=== PATIENT | male | born 1945 | race Caucasian/White ===

== ENCOUNTER 2023-11-14 21:10 | Inpatient (IN) | payer OTHER ==
[~2023-11-14 21:10] MED LIST: Iopamidol 300 61% 100 ML VIAL FS ONE
[2023-11-14 22:13] LABS: Hematocrit 31.8 % (38.8-50.0); Hemoglobin 10.3 g/dL (13.5-17.5); Mean Corpuscular HGB CONC 32.4 g/dL (32.0-36.0); Mean Corpuscular Volume 92.7 fl (81.2-95.1); Mean Platelet Volume 11.4 fl (7.4-10.4); Platelet Count 313 10x3/uL (150-450); RBC Distribution Width 19.8 % (11.5-14.5); Red Blood Cell (RBC) Count 3.43 10x6/uL (4.32-5.72); White Blood Cell (WBC) Count 14.9 10x3/uL (3.5-10.5)
[2023-11-14 22:24] LABS: ALT (SGPT) 11 U/L (8-55); AST (SGOT) 16 U/L (5-34); Albumin 3.6 g/dL (3.4-4.8); Alkaline Phosphatase 72 U/L (40-110); Anion Gap 10 mmol/L (10-20); BUN (Urea Nitrogen) 20 mg/dL (8.4-25.7); Bilirubin, Total 0.2 mg/dL (0.2-1.2); Calc. Creatinine Clearance 0 mL/min (70-130); Calcium 8.5 mg/dL (7.8-10.44); Carbon Dioxide 24 mmol/L (23-31); Chloride 107 mmol/L (98-107); Estimated GFR 74; Glucose 114 mg/dL (83-110); Lipase 379 U/L (8-78); Magnesium 1.9 mg/dL (1.6-2.6); Potassium 4.4 mmol/L (3.5-5.1); Protein, Total 7.6 g/dL (5.8-8.1); Sodium 137 mmol/L (136-145)
[2023-11-14 22:31] LABS: Troponin I Less than 0.010 ng/mL (< 0.028)
[2023-11-14 22:35] LABS: Band 10 % (5-11); Lymphocytes 9 % (21-51); Monocytes 12 % (0-10)
[2023-11-14 22:36] LABS: Neutrophil 69 % (42-75); Target Cells SLIGHT = 2-5 cells (100X) (0-1/hpf)
[2023-11-14 22:37] LABS: Ovalocytes SLIGHT = 2-5 cells (100X) (0-1/hpf)
[2023-11-14 22:38] LABS: Microcytosis SLIGHT = 6-15 cells (100X) (0-5/hpf)
[2023-11-14 22:39] LABS: Giant Platelets SLIGHT HPF (0-5); Large Platelets MODERATE (None Seen); Platelet Adequacy Comment Appears Adequate
[2023-11-14 22:40] LABS: MDiff Complete? YES
[2023-11-14 22:46] LABS: SARS-CoV-2 NAA Rapid Test Not Detected (NotDetected)
[2023-11-14 22:50] LABS: Bilirubin Neg (Negative); Blood, Urine 250 (Negative); Clarity Cloudy (Clear); Glucose, Urine (Dipstick) Normal (Negative); Ketone, Urine Negative (Negative); Leukocyte 500 (Negative); Nitrite Negative (Negative); Protein, Urine (Dipstick) 100 mg/dl (Neg-Trace); Urobilinogen Normal mg/dL (Less than 2)
[2023-11-14 22:58] LABS: Bacteria/HPF 4+ HPF (None Seen); CAUTI Indications for Culture Alt mental st,lethar; Squamous Epithelial 0-3 HPF (0-3); Urine Culture Reflex Yes Yes; WBC/HPF Greater Than 50 HPF (0-3)
[2023-11-15] MEDS ORDERED: cefTRIAXone (ROCEPHIN) 2 GM VIAL ONE (00:06)
[2023-11-15] MEDS ORDERED: Calcium Carbonate 500 MG ChewTAB PO PRN (01:23)
[2023-11-15] MEDS ORDERED: Senokot S 8.6-50 MG TAB PO PRN (01:23)
[2023-11-15] MEDS ORDERED: HYDROcodone/Acetaminophen 5/325 mg Tablet PO PRN (01:23)
[2023-11-15] MEDS ORDERED: Acetaminophen 325 MG TAB PO PRN (01:23)
[2023-11-15] MEDS ORDERED: Ipratropium/Albuterol 3 ML NEB NEB PRN (01:35)
[2023-11-15 04:08] LABS: Hematocrit 33.6 % (38.8-50.0); Hemoglobin 11.2 g/dL (13.5-17.5); Mean Corpuscular HGB CONC 33.3 g/dL (32.0-36.0); Mean Corpuscular Hemoglobin 30.4 pg (27.0-33.0); Mean Corpuscular Volume 91.3 fl (81.2-95.1); Mean Platelet Volume 11.4 fl (7.4-10.4); Platelet Count 301 10x3/uL (150-450); RBC Distribution Width 19.8 % (11.5-14.5); Red Blood Cell (RBC) Count 3.68 10x6/uL (4.32-5.72); White Blood Cell (WBC) Count 11.1 10x3/uL (3.5-10.5)
[2023-11-15 04:17] LABS: MDiff Complete? YES
[2023-11-15 04:21] LABS: ALT (SGPT) 11 U/L (8-55); AST (SGOT) 15 U/L (5-34); Albumin 3.6 g/dL (3.4-4.8); Alkaline Phosphatase 74 U/L (40-110); Anion Gap 13 mmol/L (10-20); BUN (Urea Nitrogen) 17 mg/dL (8.4-25.7); Bilirubin, Direct 0.1 mg/dL (0.1-0.3); Bilirubin, Total 0.2 mg/dL (0.2-1.2); Calc. Creatinine Clearance 0 mL/min (70-130); Calcium 8.4 mg/dL (7.8-10.44); Carbon Dioxide 22 mmol/L (23-31); Chloride 108 mmol/L (98-107); Estimated GFR 89; Glucose 119 mg/dL (83-110); Lipase 285 U/L (8-78); Protein, Total 7.7 g/dL (5.8-8.1); Sodium 139 mmol/L (136-145)
[2023-11-15 06:51] LABS: Band 2 % (5-11); Eosinophils 2 % (0-10); Lymphocytes 10 % (21-51); Metamyelocyte 1 % (0-0); Monocytes 5 % (0-10); Neutrophil 80 % (42-75)
[2023-11-15 06:52] LABS: Platelet Adequacy Comment Appears Adequate; RBC Morph Comment Within Normal Limits
[2023-11-15] MEDS ORDERED: Ondansetron PF 4 MG/2 ML Vial ONE (08:16)
[2023-11-15] MEDS: Mometasone/Formoterol 200/5 60 PUFF INH SCH ×2 (08:22→19:29)
[2023-11-15] MEDS: Lactated Ringer's 1,000 ML IV SCH ×2 (08:23→18:19)
[2023-11-15] MEDS: Ondansetron PF 4 MG/2 ML Vial IVP PRN ×2 (08:24→17:45)
[2023-11-15] MEDS ORDERED: Famotidine/PF 20 mg/2ml Vial SLOW IVP SCH (09:00)
[2023-11-15] MEDS ORDERED: Amlodipine 5 MG TAB ONE (09:07)
[2023-11-15] MEDS ORDERED: Enoxaparin 40 MG (0.4 mL) SYRINGE ONE (09:07)
[2023-11-15] MEDS ORDERED: Pantoprazole 40 MG VIAL ONE (09:08)
[2023-11-15] MEDS ORDERED: Dicyclomine 20 MG TAB ONE (09:10)
[2023-11-15] MEDS: Amlodipine 10 MG TAB PO SCH (10:38)
[2023-11-15] MEDS: Enoxaparin 40 MG (0.4 mL) SYRINGE SC SCH (10:39)
[2023-11-15] MEDS: Dicyclomine 10 MG CAP PO SCH ×3 (10:39→21:35)
[2023-11-15] MEDS: Polyethylene Glycol 3350 17 GM Packet PO SCH (10:39)
[2023-11-15] MEDS: Pantoprazole 40 MG VIAL IVP SCH ×2 (10:39→21:35)
[2023-11-15] MEDS: Lisinopril 20 MG TAB PO SCH (10:39)
[2023-11-15] MEDS: Tamsulosin HCl 0.4 MG CAP PO SCH (21:35)
[2023-11-15] MEDS: Atorvastatin Calcium 20 MG TAB PO SCH (21:35)
[2023-11-15 23:30] VITALS: BMI 20.5
[2023-11-15] MEDS: cefTRIAXone\\ROCEPHIN 1 GM in Sodium Chloride 0.9% 100 ML IVPB SCH (23:52)
[2023-11-16 04:42] LABS: Hematocrit 29.4 % (38.8-50.0); Hemoglobin 9.7 g/dL (13.5-17.5); Mean Corpuscular Hemoglobin 29.7 pg (27.0-33.0); Mean Corpuscular Volume 89.9 fl (81.2-95.1); Mean Platelet Volume 11.4 fl (7.4-10.4); Platelet Count 294 10x3/uL (150-450); RBC Distribution Width 19.9 % (11.5-14.5); Red Blood Cell (RBC) Count 3.27 10x6/uL (4.32-5.72); White Blood Cell (WBC) Count 9.2 10x3/uL (3.5-10.5)
[2023-11-16 04:59] LABS: ALT (SGPT) 9 U/L (8-55); AST (SGOT) 14 U/L (5-34); Albumin 3.1 g/dL (3.4-4.8); Alkaline Phosphatase 58 U/L (40-110); Anion Gap 11 mmol/L (10-20); BUN (Urea Nitrogen) 20 mg/dL (8.4-25.7); Bilirubin, Total 0.2 mg/dL (0.2-1.2); Calc. Creatinine Clearance 46 mL/min (70-130); Calcium 8.1 mg/dL (7.8-10.44); Carbon Dioxide 26 mmol/L (23-31); Chloride 110 mmol/L (98-107); Estimated GFR 62; Globulin 3.3 g/dL (2.4-3.5); Glucose 82 mg/dL (83-110); Lipase 31 U/L (8-78); Magnesium 2.1 mg/dL (1.6-2.6); Phosphorus 3.9 mg/dL (2.3-4.7); Potassium 3.8 mmol/L (3.5-5.1); Protein, Total 6.4 g/dL (5.8-8.1); Sodium 143 mmol/L (136-145)
[2023-11-16] MEDS: Lactated Ringer's 1,000 ML IV SCH (05:11)
[2023-11-16 05:19] LABS: MDiff Complete? YES
[2023-11-16 05:45] LABS: Band 6 % (5-11); CRP (Inflammatory) 1.98 mg/dL (= or < 0.5); Eosinophils 2 % (0-10); Lymphocytes 26 % (21-51); Monocytes 9 % (0-10); Neutrophil 55 % (42-75); Reactive Lymphocytes 2 % (0-10)
[2023-11-16 05:49] LABS: Large Platelets SLIGHT (None Seen); Target Cells SLIGHT = 2-5 cells (100X) (0-1/hpf)
[2023-11-16 05:50] LABS: Platelet Adequacy Comment Appears Adequate
[2023-11-16] MEDS: Mometasone/Formoterol 200/5 60 PUFF INH SCH ×2 (07:16→20:30)
[2023-11-16] MEDS: Enoxaparin 40 MG (0.4 mL) SYRINGE SC SCH (09:11)
[2023-11-16] MEDS: Pantoprazole 40 MG VIAL IVP SCH ×2 (09:11→20:31)
[2023-11-16] MEDS: Amlodipine 10 MG TAB PO SCH (09:12)
[2023-11-16] MEDS: Lisinopril 20 MG TAB PO SCH (09:12)
[2023-11-16] MEDS: Polyethylene Glycol 3350 17 GM Packet PO SCH (09:13)
[2023-11-16] MEDS ORDERED: diphenhydrAMINE 25 MG CAP PO PRN (17:24)
[2023-11-16] MEDS: Tamsulosin HCl 0.4 MG CAP PO SCH (20:31)
[2023-11-16] MEDS: Atorvastatin Calcium 20 MG TAB PO SCH (20:31)
[2023-11-16] MEDS: cefTRIAXone\\ROCEPHIN 1 GM in Sodium Chloride 0.9% 100 ML IVPB SCH (23:48)
[2023-11-17] MEDS: Mometasone/Formoterol 200/5 60 PUFF INH SCH ×2 (07:25→19:10)
[2023-11-17 08:52] VITALS: TEMP 97.6
[2023-11-17] MEDS: Amlodipine 10 MG TAB PO SCH (09:21)
[2023-11-17] MEDS: Lisinopril 20 MG TAB PO SCH (09:21)
[2023-11-17 09:22] VITALS: BP 156/71
[2023-11-17] MEDS: Polyethylene Glycol 3350 17 GM Packet PO SCH (09:22)
[2023-11-17] MEDS: Enoxaparin 40 MG (0.4 mL) SYRINGE SC SCH (09:22)
[2023-11-17] MEDS: Pantoprazole 40 MG VIAL IVP SCH (09:22)
== END 2023-11-17 23:30 | DRG 690 ==
LOC: CSHERS 21:10 → EEVIPCON 11-15 01:23 → CSHERHOLD 11-15 01:23 → CSHTELE 11-15 14:59
PROVIDERS: ADMIT Student in an Organized Health Care Education/Training Program; ATTEND Internal Medicine
DX: N10 Acute pyelonephritis (principal); I10 Essential (primary) hypertension; E78.5 Hyperlipidemia, unspecified; J44.9 Chronic obstructive pulmonary disease, unspecified; K21.9 Gastro-esophageal reflux disease without esophagitis; F17.210 Nicotine dependence, cigarettes, uncomplicated; R11.2 Nausea with vomiting, unspecified; R47.1 Dysarthria and anarthria; N40.0 Benign prostatic hyperplasia without lower urinary tract symptoms; Z11.52 Encounter for screening for COVID-19
CPT/HCPCS: 36415; 70450; 70551; 71045; 72125; 74177; 80048; 80053; 80076; 81001; 83605; 83690; 83735; 84100; 84145; 84484; 85025; 86140; 87040; 87077; 87086; 87186; 93005; 94664; 96374; C9113; J0696; J1650; J2405; J3490; J7120; Q9967

== ENCOUNTER 2024-11-15 14:22 | Emergency (ER) | payer OTHER ==
[2024-11-15] MEDS ORDERED: Haloperidol Lactate 5 MG/ML VIAL ONE (14:48)
[2024-11-15 14:54] LABS: #Basophils 0.05 10x3/uL (0.0-0.2); #Eosinophils Less than 0.03 10x3/uL (0.0-0.5); #Monocytes 1.09 10x3/uL (0.0-1.1); #Neutrophils 8.27 10x3/uL (1.5-8.4); %Basophils 0.5 % (0.0-2.0); %Lymphocytes 13.9 % (18.0-47.0); %Monocytes 9.9 % (0.0-10.0); %Neutrophils 75.2 % (40.0-75.0); Hemoglobin 8.6 g/dL (13.5-17.5); Mean Corpuscular HGB CONC 31.9 g/dL (32.0-36.0); Mean Corpuscular Hemoglobin 29.2 pg (27.0-33.0); Mean Corpuscular Volume 91.5 fL (81.2-95.1); Mean Platelet Volume 10.2 fL (7.4-10.4); Platelet Count 386 10x3/uL (150-450); RBC Distribution Width 16.3 % (11.5-14.5); Red Blood Cell (RBC) Count 2.95 10x6/uL (4.32-5.72)
[2024-11-15 15:13] LABS: PTT 32.7 sec (22.0-33.0)
[2024-11-15 15:15] LABS: ALT (SGPT) 8 U/L (Less than 45); AST (SGOT) 17 U/L (11-34); Acetaminophen Less than 10 mcg/mL (Less than 10); Albumin 2.5 g/dL (3.1-4.5); Alcohol Less than 10.0 mg/dL (Less than 10); Alkaline Phosphatase 61 U/L (40-110); Anion Gap 14 mmol/L (10-20); BUN (Urea Nitrogen) 33 mg/dL (8.4-25.7); Bilirubin, Total 0.2 mg/dL (0.3-1.2); Calc. Creatinine Clearance 0 mL/min (70-130); Calcium 7.8 mg/dL (7.8-10.44); Carbon Dioxide 19 mmol/L (23-31); Chloride 105 mmol/L (98-107); Estimated GFR 33; Globulin 5.3 g/dL (2.4-3.5); Glucose 104 mg/dL (83-110); Potassium 4.6 mmol/L (3.5-5.1); Protein, Total 7.8 g/dL (5.8-8.1); Salicylate Less than 8.0 mg/dL (Less than 8.0); Sodium 133 mmol/L (136-145)
[2024-11-15 15:56] LABS: Bilirubin Neg (Negative); Blood, Urine 150 (Negative); Glucose, Urine (Dipstick) Normal (Negative); Ketone, Urine 5 mg/dL (Negative); Leukocyte 500 (Negative); Nitrite Negative (Negative); Protein, Urine (Dipstick) 100 mg/dl (Neg-Trace); Urobilinogen Normal mg/dL (Less than 2); pH, Urine 6.5 (5.0-9.0)
[2024-11-15 16:00] LABS: Clarity Turbid (Clear)
[2024-11-15 16:04] LABS: Amphetamine Not Detected (NotDetected); Barbiturates Screen Not Detected (NotDetected); Benzodiazepine Screen Not Detected (NotDetected); Cocaine Metabolite Screen Not Detected (NotDetected); Methadone Not Detected (NotDetected); Methamphetamine Not Detected (NotDetected); Opiate Screen Not Detected (NotDetected); Oxycodone Screen Not Detected (NotDetected); Phencyclidine (PCP) Not Detected (NotDetected); THC/Cannabinoid Screen Not Detected (NotDetected); Tricyclic Screen Not Detected (NotDetected)
[2024-11-15 16:51] LABS: CAUTI Indications for Culture Alt mental st,lethar; WBC/HPF Greater than 50 HPF (0-3)
[2024-11-15 16:52] LABS: Bacteria/HPF 3+ HPF (None Seen); Squamous Epithelial None Seen HPF (0-3)
[2024-11-15 16:53] LABS: Urine Culture Reflex Yes Yes
[2024-11-15] MEDS ORDERED: LevoFLOXacin 750 mg/D5W 150 ml Premix Bag ONE (17:19)
[2024-11-15 19:27] LABS: Anion Gap 11 mmol/L (10-20); BUN (Urea Nitrogen) 31 mg/dL (8.4-25.7); Calc. Creatinine Clearance 0 mL/min (70-130); Carbon Dioxide 19 mmol/L (23-31); Chloride 107 mmol/L (98-107); Estimated GFR 38; Glucose 109 mg/dL (83-110); Potassium 4.3 mmol/L (3.5-5.1); Sodium 133 mmol/L (136-145)
[2024-11-16] MEDS ORDERED: Ipratropium/Albuterol 3 ML NEB ONE ×2 (04:31→04:42)
== END 2024-11-15 23:45 ==
LOC: EEVIPCON 14:22 → CSHERS 14:22
DX: N17.9 Acute kidney failure, unspecified (principal); N39.0 Urinary tract infection, site not specified; R41.82 Altered mental status, unspecified; I25.10 Atherosclerotic heart disease of native coronary artery without angina pectoris; K21.9 Gastro-esophageal reflux disease without esophagitis; E78.5 Hyperlipidemia, unspecified; I10 Essential (primary) hypertension; J44.9 Chronic obstructive pulmonary disease, unspecified; Z86.73 Personal history of transient ischemic attack (TIA), and cerebral infarction without residual deficits; Z79.51 Long term (current) use of inhaled steroids; Z79.899 Other long term (current) drug therapy
CPT/HCPCS: 36415; 51701; 70450; 80053; 80306; 80307; 81001; 82140; 84145; 85025; 85610; 85730; 87086; 93005; 96365; 96375; J1630; J1956

== ENCOUNTER → 2024-11-16 | Emergency (ER) | payer OTHER ==
[~2024-11-16] MED LIST changes: +Dexamethasone 10 MG/ML VIAL ONE; -Iopamidol 300 61% 100 ML VIAL FS ONE
[2024-11-16 05:27] LABS: Actual Bicarbonate (HCO3v) 17.3 mEq/L (22-28); Analyzer IN Cardio CS ER; Base Excess -8.9 mEq/L (-2 - +2); Calcium, Ionized (venous) 1.15 mmol/L (1.16-1.32); Chloride (VBG) 103 mmol/L (98-106); Critical Notified By: S. Roller. RRT; Hematocrit-VBG 30 % (42.0-52.0); Hemoglobin (Hb) 10.2 g/dL (12.6-17.4); Potassium (VBG) 5.28 mmol/L (3.70-5.30); Puncture Site Other Site; RapidComm Collect By RN; Sodium 134 mmol/L (133-146); pH (venous) 7.269 (7.32-7.43)
== END ==
LOC: CSHERS 02:33 → EEVIPCON 02:33
DX: J44.1 Chronic obstructive pulmonary disease with (acute) exacerbation (principal); N39.0 Urinary tract infection, site not specified; I10 Essential (primary) hypertension; E78.5 Hyperlipidemia, unspecified; Z79.899 Other long term (current) drug therapy
CPT/HCPCS: 71045; 82805; 87428; 94640; 94760; 96372; J1100; J7620